=== PATIENT | female | born 1970 | race Caucasian/White ===

== ENCOUNTER 2016-10-06 09:36 | Emergency (ER) | payer BC, OTHER ==
[2016-10-06] MEDS ORDERED: DUONEB 0.5 MG/3 MG NEB ONE (09:42)
[2016-10-06] MEDS ORDERED: DUONEB 0.5 MG/3 MG ONE (09:46)
--- NOTE | 2016-10-06 13:16 | RAD ---
HISTORY: Wheezing Study: Chest one view Comparison: None Findings: There is a right-sided port present. The heart is enlarged. No definite congestive heart failure is identified. No alveolar infiltrates or pleural effusions are identified. Minimal interstitial lung c hanges are present. The bony thorax is unremarkable with the exception of an old healed right proxim al humeral fracture. The right hemidiaphragm is elevated. IMPRESSION: Cardiomegaly without congestive heart failure No acute alveolar infiltrates Minimal interstitial lung changes Reported By:
[2016-10-06 15:09] LABS: BASOPHILS % (AUTO) 0.3 % (0.2-1.0); EOSINOPHILS % (AUTO) 0.1 % (0.9-2.9); HEMATOCRIT 31.7 % (36.0-47.0); HEMOGLOBIN 10.2 g/dL (12.0-16.0); LYMPHOCYTES # (AUTO) 0.9 X10^3/uL (1.3-2.9); LYMPHOCYTES % (AUTO) 6.3 % (21.0-51.0); MEAN CORPUSCULAR HEMOGLOBIN 28.9 pg (27.0-34.0); MEAN CORPUSCULAR HGB CONC 32.3 g/dL (33.0-35.0); MEAN CORPUSCULAR VOLUME 89.7 fL (80.0-100.0); MEAN PLATELET VOLUME 9.1 fL (7.4-11.0); MONOCYTES # (AUTO) 0.7 x10^3/uL (0.3-0.8); MONOCYTES % (AUTO) 4.5 % (0.0-13.0); NEUTROPHILS # (AUTO) 12.8 x10^3/uL (2.2-4.8); NEUTROPHILS % (AUTO) 88.8 % (42.0-75.0); PLATELET COUNT 157 X10^3/uL (150.0-450.0); RED BLOOD COUNT 3.54 X10^6/uL (3.5-5.4); RED CELL DISTRIBUTION WIDTH 15.3 % (11.6-16.5); WHITE BLOOD COUNT 14.4 X10^3/uL (3.6-10.0)
[2016-10-06 15:10] LABS: ALBUMIN 2.7 g/dL (3.4-5.0); CALCIUM 8.4 mg/dL (8.5-10.1); COR CA(FOR HYPOALB) 9.4 mg/dL (8.5-10.1); CREATININE 1.85 mg/dL (0.55-1.02)
[2016-10-06 16:09] VITALS: BP 193/100; BMI 41.8
[2016-10-06 16:35] LABS: APPEARANCE,URINE HAZY (CLEAR); COLOR,URINE DARK YELLOW (YELLOW)
[2016-10-06 16:36] LABS: BILIRUBIN,URINE NEGATIVE (NEGATIVE); BLOOD/HEMOGLOBIN,URINE 2+ (NEGATIVE); GLUCOSE, URINE NEGATIVE (NEGATIVE); KETONES,URINE NEGATIVE (NEGATIVE); LEUKOCYTE ESTERASE ,URINE 2+ (NEGATIVE); NITRITES,URINE NEGATIVE (NEGATIVE); PROTEIN,URINE 2+ (NEGATIVE); UROBILINOGEN,URINE NORMAL (NORMAL)
[2016-10-06 16:37] LABS: BACTERIA,URINE TRACE /HPF (NEGATIVE); SQUAMOUS EPITHELIAL CELL,UR FEW /HPF (NEGATIVE); YEAST,URINE MANY /HPF (NEGATIVE)
--- NOTE | 2016-10-15 19:51 | DR.COUGH ---
HPI - Time Seen Time seen: 09:37 - PCP Primary Care Physician: darya - Complaint Chief Complaint Doctor Comments: Hisitory as stated.Denies fever, vomiting or diarrhea. Denies respiratory distress Chief Complaint:: patient stated she started a new psych med yesterday and last night around mid night she thinks she aspirated. she also has figueroa bonnet syndrom. - Source History Provided: Patient, EMS - Mode of Arrival Mode of Arrival: EMS - Timing Onset of Chief Complaint: 10/06/16 PMH - PMH Past Medical History: Yes Past Medical History: CHF, Diabetes, Hypertension, Renal Disease Past Surgical History: Yes Surgical History: Cholecystectomy, Hysterectomy, Ortho Surgery - Family History History of Family Medical Conditions: Yes Family Medical History: Diabetes Mellitus, Cancer, [place], Coronary Artery Disease, Hypertension - Social History Does patient currently use any type of tobacco product: No Have you used tobacco products in the last 12 months: No Type of Tobacco Use: None Do you use any recreational Drugs:: No Lives With: Family Lives Where: Home - infectious screening In the last 2 months have you had wt loss of >10#?: NO Have you had fever, night sweats or hemotysis?: No Have you traveled outside the country in the last 6 months?: No Isolation: Standard ROS - Review of Systems Constitutional: No Symptoms Reported Eyes: No Symptoms Reported ENTM: No Symptoms Reported Respiratoy: Dry Cough Cardiovascular: No Symptoms Reported Gastrointestinal/Abdominal: No Symptoms Reported Genitourinary: No Symptoms Reported Neurological: No Symptoms Reported Musculoskeletal: No Symptoms Reported Integumentary: No Symptoms Reported Hematologic/Lymphatic: No Symptoms Reported Endocrine: No Symptoms Reported Psychiatric: No Symptoms Reported All Other Systems: Reviewed and Negative PE - Vitals Vitals: Temperature 97.0 F Pulse Rate 82 Respiratory Rate 16 Blood Pressure 193/100 O2 Sat by Pulse Oximetry 97 - General Limitations: No Limitations General Appearance: Alert, In No Apparent Distress - Head Head Exam: Normal Inspection, Atraumatic - Eyes Eye exam: Normal Appearance, PERRL, EOMI - ENT ENT Exam: Normal Exam External Ear Exam: Normal External Inspection TM/Canal Exam: Bilateral Normal Nose Exam: Normal Nose Exam Nasal Speculum Exam: Bilateral Normal Mouth Exam: Normal Inspection Teeth Exam: Normal Inspection, Dental Caries Throat Exam: Normal Inspection - Neck Neck Exam: Normal Inspection - Chest Chest Inspection: Normal Inspection - Respiratory Respiratory Exam: Prolonged Expiratory Phase Respiratory Exam: Bilateral Wheezing - Cardiovascular Cardiovascular Exam: Regular Rate, Normal Rhythm - Abdominal Exam Abdominal Exam: Normal Inspection, Normal Bowel Sounds Abdominal Tenderness: negative: RUQ, RLQ, LUQ, LLQ, Epigastrium, Suprapubic, Diffuse, Mild, Moderate, Severe, Other - Extremities Extremities Exam: Normal Inspection - Back Back Exam: Normal Inspection - Neurologic Neurological Exam: Alert, Oriented X3, CN II-XII Intact - Psychiatric Psychiatric Exam: Normal Affect, Normal Mood - Skin Skin Exam: Warm, Dry, Intact Distribution: Involves Palms/Soles Course - Treatment Treatment: Neb treatment - Reevaluation 1st: Improved ROR - Labs Reviewed Result Diagrams: 10/06/16 09:58 10/06/16 09:58 Laboratory: WBC 14.4 X10^3/uL (3.6-10.0) H 10/06/16 09:58 RBC 3.54 X10^6/uL (3.5-5.4) 10/06/16 09:58 Hgb 10.2 g/dL (12.0-16.0) L 10/06/16 09:58 Hct 31.7 % (36.0-47.0) L 10/06/16 09:58 MCV 89.7 fL (80.0-100.0) 10/06/16 09:58 MCH 28.9 pg (27.0-34.0) 10/06/16 09:58 MCHC 32.3 g/dL (33.0-35.0) L 10/06/16 09:58 RDW 15.3 % (11.6-16.5) 10/06/16 09:58 Plt Count 157 X10^3/uL (150.0-450.0) 10/06/16 09:58 MPV 9.1 fL (7.4-11.0) 10/06/16 09:58 Neut % 88.8 % (42.0-75.0) H 10/06/16 09:58 Lymph % 6.3 % (21.0-51.0) L 10/06/16 09:58 Thomas % 4.5 % (0.0-13.0) 10/06/16 09:58 Eos % 0.1 % (0.9-2.9) L 10/06/16 09:58 Baso % 0.3 % (0.2-1.0) 10/06/16 09:58 Neut # 12.8 x10^3/uL (2.2-4.8) H 10/06/16 09:58 Lymph # 0.9 X10^3/uL (1.3-2.9) L 10/06/16 09:58 Thomas # 0.7 x10^3/uL (0.3-0.8) 10/06/16 09:58 Eos # 0.0 x10^3/uL (0.0-0.2) 10/06/16 09:58 Baso # 0.0 X10^3/uL (0.0-0.1) 10/06/16 09:58 Absolute Nucleated RBC 0.0 /100WBC 10/06/16 09:58 Sodium 138 mmol/L (136-145) 10/06/16 09:58 Corrected Sodium 142 mmol/L (136-145) 10/06/16 09:58 Potassium 4.2 mmol/L (3.5-5.1) 10/06/16 09:58 Chloride 104 mmol/L (98-107) 10/06/16 09:58 Carbon Dioxide 26.0 mmol/L (21-32) 10/06/16 09:58 BUN 43 mg/dL (7-18) H 10/06/16 09:58 Creatinine 1.85 mg/dL (0.55-1.02) H 10/06/16 09:58 Est GFR (MDRD) Af Amer 38 (>60) L 10/06/16 09:58 Est GFR (MDRD) Non-Af 31 (>60) L 10/06/16 09:58 Glucose 263 mg/dL (65-99) H 10/06/16 09:58 Calcium 8.4 mg/dL (8.5-10.1) L 10/06/16 09:58 Corrected Calcium 9.4 mg/dL (8.5-10.1) 10/06/16 09:58 Total Bilirubin 0.40 mg/dL (0.2-1.0) 10/06/16 09:58 AST 36 Units/L (15-37) 10/06/16 09:58 ALT 50 Units/L (12-78) 10/06/16 09:58 Alkaline Phosphatase 96 Units/L (46-116) 10/06/16 09:58 Total Protein 7.0 g/dL (6.4-8.2) 10/06/16 09:58 Albumin 2.7 g/dL (3.4-5.0) L 10/06/16 09:58 Globulin 4.3 g/dL (2.5-4.5) 10/06/16 09:58 Albumin/Globulin Ratio 0.6 Ratio (1.1-2.1) L 10/06/16 09:58 Specimen Type Catherized urine 10/06/16 10:42 Urine Color Dark yellow (YELLOW) 10/06/16 10:42 Urine Appearance Hazy (CLEAR) 10/06/16 10:42 Urine pH 5.0 (5.0 - 8.0) 10/06/16 10:42 Ur Specific [place] 1.015 (1.000-1.030) 10/06/16 10:42 Urine Protein 2+ (NEGATIVE) 10/06/16 10:42 Urine Glucose (UA) Negative (NEGATIVE) 10/06/16 10:42 Urine Ketones Negative (NEGATIVE) 10/06/16 10:42 Urine Occult Blood 2+ (NEGATIVE) 10/06/16 10:42 Urine Nitrite Negative (NEGATIVE) 10/06/16 10:42 Urine Bilirubin Negative (NEGATIVE) 10/06/16 10:42 Urine Urobilinogen Normal (NORMAL) 10/06/16 10:42 Ur Leukocyte Esterase 2+ (NEGATIVE) 10/06/16 10:42 Urine RBC 1-2 /HPF (NEGATIVE) 10/06/16 10:42 Urine WBC 4-6 /HPF (NEGATIVE) 10/06/16 10:42 Ur Squamous Epith Cells Few /HPF (NEGATIVE) 10/06/16 10:42 Urine Bacteria Trace /HPF (NEGATIVE) 10/06/16 10:42 Urine Yeast Many /HPF (NEGATIVE) 10/06/16 10:42 Ur Culture Indicated? No/not indicated 10/06/16 10:42 Acetone, Semi-Quant Cancelled 10/06/16 09:58 - XRAY XRAY Interpreted by: Radiologist (Chest: minimal interstitial changes, no CHF, cardiomegaly: Rad/bronchitis) - Diagnosis Discharge Problem: Reactive airway disease Qualifiers: Asthma severity: mild intermittent Asthma complication type: uncomplicated Qualified Code(s): J45.20 - Mild intermittent asthma, uncomplicated - Discharge Plan Disposition: 01 HOME, SELF-CARE Condition: Stable - Follow ups/Referrals Follow ups/Referrals: CHAY THOMPSON [Primary Care Provider] - 3 days - Instructions
== END 2016-10-06 11:55 | disposition home or self-care (01) ==
LOC: ER 09:36
DX: J68.3 Other acute and subacute respiratory conditions due to chemicals, gases, fumes and vapors (principal)
CPT/HCPCS: 36415; 36591; 71010; 80053; 81001; 85025; 94640; 96365; 96374; 99283; J7620